=== PATIENT | female | born 1990 | race Caucasian/White ===

== ENCOUNTER 2017-02-19 13:53 | Emergency (ER) | payer BC, OTHER ==
[~2017-02-19] VITALS: Ht 160 cm; Wt 55.8 kg
[2017-02-19 14:15] VITALS: BP 108/65
[2017-02-19] MEDS ORDERED: OFLO5DRO OU (14:59)
--- NOTE | 2017-02-19 14:59 | PHYS DOC ---
Past Medical History Past Medical History: No Pertinent History Past Surgical History: No Surgical History Additional Past Surgical Histo: dnc,pylonidal cyst Alcohol Use: None Drug Use: None Adult General Chief Complaint Chief Complaint: EYE PROBLEMS HPI HPI Patient is a 26 year old female presents to the emergency department stating that she has had bilateral eye irritation for the last week. She states that they've been mattered shut the morning with yellow drainage noted from the areas during the day. Patient states she had originally tried some eyedrops to help with the irritation and they started getting better in the became worse. She states that she is also had an upper respiratory Congestion prior to the eyes becoming red and irritated. She does have a history of wearing contact lenses but that was over a year ago. Review of Systems Review of Systems Constitutional: Denies fever or chills [] Eyes: Denies change in visual acuity, complaining of bilateral redness to the eyes with drainage and burning sensation HENT: Denies nasal congestion or sore throat [] Respiratory: Denies cough or shortness of breath [] Cardiovascular: No additional information not addressed in HPI [] GI: Denies abdominal pain, nausea, vomiting, bloody stools or diarrhea [] : Denies dysuria or hematuria [] Musculoskeletal: Denies back pain or joint pain [] Integument: Denies rash or skin lesions [] Neurologic: Denies headache, focal weakness or sensory changes [] Endocrine: Denies polyuria or polydipsia [] Allergies Allergies Allergies Coded Allergies Type Severity Reaction Last Updated Verified No Known Drug Allergies 01/17/14 No Physical Exam Physical Exam Constitutional: Well developed, well nourished, no acute distress, non-toxic appearance. [] HENT: Normocephalic, atraumatic, bilateral external ears normal, oropharynx moist, no oral exudates, nose normal. [] Eyes: PERRLA, EOMI, conjunctiva red with yellow discharge noted on the eyelashes as well as underneath the lower eyelid. Neck: Normal range of motion, no tenderness, supple, no stridor. [] Cardiovascular:Heart rate regular rhythm, no murmur [] Lungs & Thorax: Bilateral breath sounds clear to auscultation [] Skin: Warm, dry, no erythema, no rash. [] Back: No tenderness Extremities: No tenderness, no cyanosis, no clubbing, ROM intact, no edema. [] Neurologic: Alert and oriented X 3, normal motor function, normal sensory function, no focal deficits noted. [] Psychologic: Affect normal, judgement normal, mood normal. [] Current Patient Data Vital Signs Vital Signs Date Time Temp Pulse Resp B/P (MAP) Pulse Ox O2 Delivery O2 Flow Rate FiO2 02/19/17 14:15 98.1 82 19 100 Room Air 98.1 EKG EKG [] Radiology/Procedures Radiology/Procedures [] Course & Med Decision Making Course & Med Decision Making Pertinent Labs and Imaging studies reviewed. (See chart for details) Patient will be provided with ofloxacin eyedrops. She was instructed to use good handwashing. Medication as prescribed. Tylenol or ibuprofen for fever chills or generalized body aches and discomfort. Patient was instructed to follow-up with ophthalmology in the next 24 hours. Since symptoms to return back to emergency department as been provided. Patient agrees with discharge instructions treatment regimens and follow-up recommendations. [] Dragon Disclaimer Dragon Disclaimer This electronic medical record was generated, in whole or in part, using a voice recognition dictation system. Departure Departure Impression: Primary Impression: Bilateral conjunctivitis Disposition: HOME, SELF-CARE Condition: STABLE Referrals: SAGE MENDEZ MD (PCP) Kyra DAVIES MD Patient Instructions: Bacterial Conjunctivitis, [id number] Additional Instructions: Medications as prescribed. Good handwashing is essential. Follow-up with ophthalmology within the next 24 hours. Return back to emergency prior signs symptoms of become worse. Scripts Ofloxacin (OCUFLOX) 5 Ml Drops 1-2 DROP OU BID, #1 BOTTLE Prov: LU SHEPPARD APRN 02/19/17 LU SHEPPARD APRN Feb 19, 2017 14:59
== END 2017-02-19 15:11 | disposition home or self-care (01) ==
LOC: ER 13:53
DX: H10.9 Unspecified conjunctivitis (principal)
CPT/HCPCS: 99283

== ENCOUNTER 2019-01-16 01:47 | Emergency (ER) | payer OTHER ==
[~2019-01-16] VITALS: Ht 162.6 cm; Wt 59.0 kg
[~2019-01-16 01:47] MED LIST: OFLO5DRO OU
[2019-01-16 01:54] VITALS: BP 116/69
--- NOTE | 2019-01-16 02:17 | PHYS DOC ---
Past Medical History Past Medical History: Bipolar Past Surgical History: No Surgical History Additional Past Surgical Histo: dnc,pylonidal cyst Alcohol Use: None Drug Use: Methamphetamine Adult General Chief Complaint Chief Complaint: TOE PROBLEM HPI HPI Patient is 28-year-old female presents with a right fourth toe injury. She states she stubbed it on a piece of wood bolted into the ground tonight. It's turned black and very painful. She states she's been self medicating at home and it feels relatively numb at this point. She denies any other injuries.[] Review of Systems Review of Systems Musculoskeletal: Per history of present illness[] All other systems were reviewed and found to be within normal limits, except as documented in this note. Allergies Allergies Allergies Coded Allergies Type Severity Reaction Last Updated Verified No Known Drug Allergies 01/17/14 No Physical Exam Physical Exam Constitutional: Well developed, well nourished, mild distress, non-toxic appearance. [] HENT: Normocephalic, atraumatic, bilateral external ears normal, oropharynx moist, no oral exudates, nose normal. [] [] Skin: Warm, dry, no erythema, no rash. [] Back: No tenderness, no CVA tenderness. [] Extremities: Right fourth toe has some bruising no obvious deformity[] Neurologic: Alert and oriented X 3, normal motor function, normal sensory function, no focal deficits noted. [] Psychologic: Anxious[] Current Patient Data Vital Signs Vital Signs Date Time Temp Pulse Resp B/P (MAP) Pulse Ox O2 Delivery O2 Flow Rate FiO2 01/16/19 01:54 98.6 102 20 116/69 (85) 98 Room Air 98.6 EKG EKG [] Radiology/Procedures Radiology/Procedures [] Impressions: Right side toes: No obvious acute injury Course & Med Decision Making Course & Med Decision Making Pertinent Labs and Imaging studies reviewed. (See chart for details) [] Dragon Disclaimer Dragon Disclaimer This electronic medical record was generated, in whole or in part, using a voice recognition dictation system. Departure Departure Impression: Primary Impression: Contusion of fourth toe, right Disposition: HOME, SELF-CARE Condition: STABLE Referrals: NO PCP (PCP) Patient Instructions: Contusion Additional Instructions: Ice and elevate several times daily for the next 2 days. Return to the emergency department with any new or concerning symptoms. Problem Qualifiers Primary Impression: Contusion of fourth toe, right Encounter type: initial encounter Qualified Codes: S90.121A - Contusion of right lesser toe(s) without damage to nail, initial encounter GEOVANNY STEPHENSON DO Jan 16, 2019 02:17
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
== END 2019-01-16 02:39 | disposition home or self-care (01) ==
LOC: ER 01:47
DX: S90.121A Contusion of right lesser toe(s) without damage to nail, initial encounter (principal); F31.9 Bipolar disorder, unspecified; W22.8XXA Striking against or struck by other objects, initial encounter; Y93.89 Activity, other specified; Y92.89 Other specified places as the place of occurrence of the external cause; Y99.8 Other external cause status
CPT/HCPCS: 73660; 99284

== ENCOUNTER 2021-12-11 22:36 | Emergency (ER) | payer OTHER ==
[~2021-12-11] VITALS: Ht 162.6 cm; Wt 61.3 kg
[~2021-12-11 22:36] MED LIST changes: +TOBR5DRO6 OP
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
[2021-12-11] MEDS ORDERED: HYDROcodone/APAP 5/325MG 1 TAB TABLET PO ONE (23:15)
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
[2021-12-12 01:08] VITALS: BP 98/64
--- NOTE | 2021-12-12 01:45 | RAD ---
INDICATION: Reason: right elbow injured / Spl. Instructions: / History: COMPARISON: None. IMPRESSION: Right elbow: 3 views obtained. No acute fracture or dislocation. Electronically signed by: Hernan Westfall MD (12/12/2021 1:42 AM) [id number]
== END 2021-12-12 01:52 | disposition home or self-care (01) ==
LOC: ER 22:36 → EEVIPCON 22:36 → ER 12-12 01:52
DX: S61.412A Laceration without foreign body of left hand, initial encounter (principal); S00.83XA Contusion of other part of head, initial encounter; F31.9 Bipolar disorder, unspecified; R51.9 Headache, unspecified; F17.200 Nicotine dependence, unspecified, uncomplicated; Y04.0XXA Assault by unarmed brawl or fight, initial encounter; Y93.89 Activity, other specified; Y92.89 Other specified places as the place of occurrence of the external cause; Y99.8 Other external cause status
CPT/HCPCS: 70450; 70486; 73080; 99285-25